=== PATIENT | female | born 1960 | race Two or more races ===

== ENCOUNTER 2024-05-10 17:12 | Emergency (ER) | payer MEDICAID, OTHER ==
[~2024-05-10] VITALS: Ht 157.5 cm; Wt 76.2 kg
--- NOTE | 2024-05-10 18:08 | ECG ---
[facility] Test Date: 2024-05-10 Test Time: 18:04:20 Pat Name: FELIPA PRUETT Department: ER Room: Gender: F Pharmacy Technician: GV : 1960 Requested By: ROSLYN SALAS Order Number: [id number] Reading MD: Anthony Sanabria Measurements Intervals [place] Rate: 94 P: 78 AR: 180 QRS: 71 QRSD: 89 T: 3 QT: 368 QTc: 461 Interpretive Statements Sinus rhythm Atrial premature complex Probable LVH with secondary repol abnrm Anterior Q waves, possibly due to LVH Electronically Signed On 05-11-2024 16:25:11 PST by Anthony Sanabria Please click the below link to view image of tracing.
--- NOTE | 2024-05-10 18:30 | ED.PDOC ---
HPI (NEURO) HPI Comments HPI: Poor Historian. 64-year-old female presents to emergency department for evaluation of left-sided periorbital headache for the last five days and also three day history of bilateral eye lateral vision disturbance for the last three days. Patient was found with blood pressure of L 251/140 and a heart rate of 97 in triage also right 255/136 Vitals: Temp: 97.6 F RR: 17 02 sat: 96% on room air HR: 97 BP: 255/136 PMH: Diabetes and hypertension not taking any medications PSH: denies Social history: denies tobacco use, denies ETOH use, denies drug use Meds: unknown allergies: nkda REVIEW OF SYSTEMS: CONSTITUTIONAL: Denies acute: fever, diaphoresis, chills, generalized weakness. HEAD: Denies acute: photophobia Eyes: Denies acute: Double vision, eye pain, eye discharge. EARS: Denies acute: tinnitus, hearing loss, ear discharge, ear pain, THROAT: Denies acute: sore throat, swelling, difficulty swallowing , pain with swallowing, change in voice. NECK: Denies acute: neck pain, neck swelling, stiff neck. HEART: Denies acute : chest pain, palpitations, LUNGS: Denies acute: SOB, wheezing, cough, hemoptysis ABDOMEN: Denies acute: abdominal pain, Nausea, Vomiting, diarrhea, melena , hematemesis, hematochezia SKIN: Denies acute: rash, redness, lesions, itchiness. EXTREMITIES: Denies acute: calf pain, numbness, tingling, weakness, denies pain in extremity. Denies acute: Low back pain. Neuro: Denies acute: focal neurological deficit, motor or sensory focal neurological deficit, tremors, seizure like activity, confusion, dizziness, change in mental status, loss of bowel or bladder function, cauda equina like symptoms. : Denies acute: dysuria, hematuria, flank pain, increase in urinary frequency. PSYCH: Denies acute: hallucination, suicidal ideation, homicidal ideation. FEMALE: Denies acute: abnormal vaginal bleeding, foul odor, unusual discharge. PHYSICAL EXAM: General: no acute distress, awake and alert. Head: normocephalic, atraumatic. Neck: supple, trachea is midline, no swelling. Throat: Normal phonation. Eyes:, no erythema, no purulent discharge, no proptosis, no icterus. Heart: regular rate, regular rhythm, no significant murmur appreciated. Lungs: no apparent respiratory distress, Able to speak in full sentences. No wheezing, no rhonchi, no crackles. No stridors Clear to auscultation bilaterally. Abdomen: non tender to palpation, non distended, soft, no guarding, no rebound, + bowel sounds. Neuro: Awake, Alert, oriented to name, self, situation, follows commands GCS=15. Speech is normal. Skin: no petechia, no purpura, no cyanosis, non-pale, not jaundice. Lower extremities: --no - Pitting edema no deformity, no focal swelling, no calf TTP. Makes eye contact. moves all four extremities. Face: no apparent facial droop. Ambulating in the ED independently. Ears: Normal appearing TM b/l, Stroke: finger to nose cerebellar testing is intact. No pronator drift. 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 No nystagmus. No nuchal rigidity, Kernig's sign, Brudzinski's sign, no meningeal signs. Chief Complaint: High Blood Pressure Time Seen by MD: 17:28 Reviewed Notes: Nurses Notes, Medications, Allergies Information Source: Patient Past Medical History PAST MEDICAL HISTORY: DM, HTN Surgical History: Denies all surgeries Social History Smoker: Non-Smoker Alcohol: Denies ETOH Use Drugs: Denies Drug Use Lives In: Home Was a procedure done? Was a procedure done?: No Differential Diagnosis (SZ) Seizure: N/A CVA: Mass Lesion, TIA Headache: Cluster, Migraine, Closed Head Injury, Carbon Monoxide Toxicity, CVA, Epidural Hemorrhage, Intracerebral Hemorrhage, Subarachnoid Hemorrhage, Subdural Hemorrhage, Mass Lesion, Meningitis, Post-Traumatic, Sinusitis, Trigeminal Neuralgia X-Ray, Labs, Meds, VS Vital Signs Date Time Temp Pulse Resp B/P (MAP) Pulse Ox O2 Delivery O2 Flow Rate FiO2 05/10/24 22:15 98.5 92 14 159/64 (95) 96 98.5 05/10/24 21:30 80 16 171/76 (107) 97 05/10/24 20:54 80 189/90 05/10/24 20:40 80 12 96 Room Air* 0 21 05/10/24 20:27 85 237/106 05/10/24 20:26 98.5 94 12 237/106 (149) 96 98.5 05/10/24 20:26 237/106 05/10/24 19:55 76 05/10/24 18:17 97.6 97 17 255/136 (175) 96 05/10/24 18:04 94 Lab Test 05/10/24 22:07 05/10/24 21:51 05/10/24 21:17 05/10/24 20:39 Range/Units Troponin I High Sensitivity 40 *H 37 *H </=34 ng/L Urine Color Light-yellow Yellow Urine Clarity Clear Clear Urine pH 8.0 5.0-9.0 Urine Specific [place] 1.042 H 1.001-1.035 Urine Protein Trace H Negative Urine Ketones Negative Negative Urine Blood Negative Negative /uL Urine Nitrite Negative Negative Urine Bilirubin Negative Negative Urine Urobilinogen Normal Negative mg/dL Urine Leukocyte Esterase Negative Negative /uL Urine RBC <1 0 - 4 /hpf Urine WBC <1 0 - 5 /hpf Urine Squamous Epithelial Cells Few <5 /hpf Urine Bacteria Few H None Seen /hpf Urine Glucose Normal Normal mg/dL POC Glucose 163 H 70-106 mg/dl Test 05/10/24 19:19 05/10/24 18:01 Range/Units White Blood Count 8.2 4.4-10.8 10^3/uL Red Blood Count 5.07 4.0-5.20 10^6/uL Hemoglobin 15.2 12.2-16.2 g/dL Hematocrit 44.5 36.0-46.0 % Mean Corpuscular Volume 87.8 80.0-100.0 fL Mean Corpuscular Hemoglobin 29.9 28.0-32.0 pg Mean Corpuscular Hemoglobin Concent 34.1 32.0-36.0 g/dL Red Cell Distribution Width 13.8 11.8-14.3 % Platelet Count 244 140-450 10^3/uL Mean Platelet Volume 9.3 6.9-10.8 fL Neutrophils (%) (Auto) 57.8 37.0-80.0 % Lymphocytes (%) (Auto) 29.5 10.0-50.0 % Monocytes (%) (Auto) 10.2 0.0-12.0 % Eosinophils (%) (Auto) 1.7 0.0-7.0 % Basophils (%) (Auto) 0.8 0.0-2.0 % Neutrophils # (Auto) 4.7 1.6-8.6 10 ^3/uL Lymphocytes # (Auto) 2.4 0.4-5.4 10 ^3/uL Monocytes # (Auto) 0.8 0-1.3 10 ^3/uL Eosinophils # (Auto) 0.1 0-0.8 10 ^3/uL Basophils # (Auto) 0.1 0-0.2 10 ^3/uL Nucleated Red Blood Cells 0.1 % Prothrombin Time 10.9 9.3-11.8 sec Prothrombin Time INR 1.03 0.9-1.15 Activated Partial Thromboplast Time 26.4 24.5-34.5 SEC Sodium Level 141 136-145 mmol/L Potassium Level 3.3 L 3.5-5.1 mmol/L Chloride Level 102 98-107 mmol/L Carbon Dioxide Level 31 20-31 mmol/L Anion Gap 8 5-15 Blood Urea Nitrogen 18 9-23 mg/dL Creatinine 0.90 0.550-1.02 mg/dL Glomerular Filtration Rate Calc 71 >90 mL/min BUN/Creatinine Ratio 20.0 10.0-20.0 Serum Glucose 121 H 74-106 mg/dL Calcium Level 9.6 8.7-10.4 mg/dL Magnesium Level 2.0 1.6-2.6 mg/dL Total Bilirubin 0.4 0.2-1.0 mg/dL Aspartate Amino Transferase (AST) 14 13-40 U/L Alanine Aminotransferase (ALT) 11 7-40 U/L Alkaline Phosphatase 104 46-116 U/L Troponin I High Sensitivity 41 *H </=34 ng/L B-Type Natriuretic Peptide 177.22 0-100 pg/mL Total Protein 7.3 5.7-8.2 g/dL Albumin 4.1 3.2-4.8 g/dL POC Glucose 134 H 70-106 mg/dl Current Medications Medications (Trade) Dose Ordered Sig/Lakhwinder Route Start Time Stop Time Status Last Admin Nitroglycerin (Ntrostat Sublingual) 0.4 mg ONCE ONCE SL 05/10/24 18:30 05/10/24 18:31 DC 05/10/24 20:26 Labetalol HCl (Labetalol HCl) 5 mg ONCE ONCE IV 05/10/24 18:30 05/10/24 18:31 DC 05/10/24 20:27 Levetiracetam 100 ml @ 400 mls/hr ONCE ONCE IV 05/10/24 19:45 05/10/24 20:24 DC 05/10/24 20:42 Dexamethasone Sodium Phosphate (Decadron Injection) 10 mg ONCE ONCE IV 05/10/24 19:45 05/10/24 19:46 DC 05/10/24 20:28 Nicardipine HCl 250 ml @ 50 mls/hr Q5H IV 05/10/24 19:45 05/10/24 23:18 DC 05/10/24 20:54 [place] [address] Ph: [phone] DIAGNOSTIC IMAGING Diagnostic Imaging Report : [id number] Signed PATIENT: FELIPA PRUETT ACCT: [id number] UNIT: [id number] : 1960 LOC: ER ROOM / BED: / AGE / SEX: 64 / F ADM STATUS: REG ER SERVICE 17 ORDERING PHYSICIAN: ROSLYN SALAS DO PROCEDURE(s): [place] - ANGIO HEAD/Neck REASON: HTN, GUTHRIE, VISION CHANGES ORDER NUMBER(s): [id number], ACCESSION NUMBER(s): [id number] INDICATION: HTN, GUTHRIE, VISION CHANGES COMPARISON: Same-day CT brain TECHNIQUE:CTA head and neck with intravenous contrast. 3D/MIP image postprocessing was performed and images were used for interpretation and reporting. Radiation Dose Information: CT Dose: CTDI volume is 22.27 mGy. Dose-length product is 774.66 mGy*cm FINDINGS: CTA neck: Normal 3-vessel origin left-sided aortic arch. The bilateral subclavian arteries are unremarkable. Bilateral common carotid arteries and bilateral cervical ICAs are unremarkable. Bilateral vertebral arteries are unremarkable with left dominant vertebral artery. CTA head: Bilateral ACAS, anterior communicating artery and bilateral MCAs are unremarkable. Bilateral intracranial ICAs are unremarkable. Bilateral dev technical mgr, bilateral superior cerebellar arteries, basilar artery and bilateral intracranial vertebral arteries unremarkable. The dural venous sinuses opacify normally. There is left occipital acute intraparenchymal hemorrhage measuring up to 2.7 x 1.3 by 1.2 cm which is better evaluated on same-day noncontrast CT brain. Right thyroid lobe nodules, largest measuring up to 0.7 cm. The lung apices are clear. IMPRESSION: No hemodynamically significant stenosis, aneurysm or vascular malformation involving the major intracranial and neck vessels. Left occipital lobe intraparenchymal hemorrhage. Please see separate noncontrast CT brain for complete details. ATED BY: BROOKE COLLINS DO DICTATED DATE/TIME: 05/10/241926 SIGNED BY: BROOKE COLLINS DO SIGNED DATE/TIME: 05/10/241926 CC: [place] [address] Ph: [phone] DIAGNOSTIC IMAGING Diagnostic Imaging Report : [id number] Signed PATIENT: FELIPA PRUETT ACCT: [id number] UNIT: [id number] : 1960 LOC: ER ROOM / BED: / AGE / SEX: 64 / F ADM STATUS: REG ER SERVICE 17 ORDERING PHYSICIAN: ROSLYN SALAS DO PROCEDURE(s): CTH - STROKE CTH REASON: HTN, GUTHRIE, VISION CHANGES ORDER NUMBER(s): [id number], ACCESSION NUMBER(s): [id number] Exam: CT STROKE CTH History: HTN, GUTHRIE, VISION CHANGES Technique: [address] images through the posterior fossa and the supratentorial compartment were acquired without contrast and imaged using soft tissue and bone algorithms. RADIATION DOSE: DLP 991.21 mGy.cm; CTDI vol 55.99 mGy. Comparison: None Findings: 2.7 x 1.8 cm left occipital lobe parenchymal hemorrhage. No mass effect or midl ine shift. There is no evidence of acute large vessel infarct. There is no significant cerebral atrophy. No significant calcification of the carotid siphons. The calvarium, orbits, paranasal sinuses, sella, middle ears, and mastoids are unremarkable. The superficial soft tissues are within normal limits. Impression: 1. 2.7 x 1.8 cm left occipital lobe parenchymal hemorrhage. 2. No mass effect or midline shift. Critical Result: Intracranial hemorrhage Findings discussed with ROSLYN SALAS at 05/10/2024 07:20 PM, and acknowledged receipt and understanding of the findings. ATED BY: HANNA HONG DO DICTATED DATE/TIME: 05/10/241920 SIGNED BY: HANNA HONG DO SIGNED DATE/TIME: 05/10/241920 CC: [place] [address] Ph: [phone] DIAGNOSTIC IMAGING Diagnostic Imaging Report : [id number] Signed PATIENT: FELIPA PRUETT ACCT: [id number] UNIT: [id number] : 1960 LOC: ER ROOM / BED: / AGE / SEX: 64 / F ADM STATUS: REG ER SERVICE 17 ORDERING PHYSICIAN: ROSLYN SALAS DO PROCEDURE(s): CXRP - CHEST PORTABLE REASON: HTN, GUTHRIE, VISION CHANGES ORDER NUMBER(s): [id number], ACCESSION NUMBER(s): [id number] CHEST RADIOGRAPH Indication: HTN, GUTHRIE, VISION CHANGES Technique: Single frontal view of the chest was obtained Comparison: None FINDINGS: Lines and Tubes: None Lungs: No focal consolidation. Pleura: No effusion. No pneumothorax. Cardiomediastinal contours: Unremarkable Bones: No acute osseous abnormality. IMPRESSION: No acute cardiopulmonary disease. ATED BY: MEHUL SPEARS MD DICTATED DATE/TIME: 05/10/241919 SIGNED BY: MEHUL SPEARS MD SIGNED DATE/TIME: 05/10/241919 CC: [place] [address] Ph: [phone] DIAGNOSTIC IMAGING Diagnostic Imaging Report : [id number] Signed PATIENT: FELIPA PRUETT ACCT: [id number] UNIT: [id number] : 1960 LOC: ER ROOM / BED: / AGE / SEX: 64 / F ADM STATUS: REG ER SERVICE 17 ORDERING PHYSICIAN: ROSLYN SALAS DO PROCEDURE(s): [place] - ANGIO HEAD/Neck REASON: HTN, GUTHRIE, VISION CHANGES ORDER NUMBER(s): [id number], ACCESSION NUMBER(s): [id number] INDICATION: HTN, GUTHRIE, VISION CHANGES COMPARISON: Same-day CT brain TECHNIQUE:CTA head and neck with intravenous contrast. 3D/MIP image postprocessing was performed and images were used for interpretation and reporting. Radiation Dose Information: CT Dose: CTDI volume is 22.27 mGy. Dose-length product is 774.66 mGy*cm FINDINGS: CTA neck: Normal 3-vessel origin left-sided aortic arch. The bilateral subclavian arteries are unremarkable. Bilateral common carotid arteries and bilateral cervical ICAs are unremarkable. Bilateral vertebral arteries are unremarkable with left dominant vertebral artery. CTA head: Bilateral ACAS, anterior communicating artery and bilateral MCAs are unremarkable. Bilateral intracranial ICAs are unremarkable. Bilateral dev technical mgr, bilateral superior cerebellar arteries, basilar artery and bilateral intracranial vertebral arteries unremarkable. The dural venous sinuses opacify normally. There is left occipital acute intraparenchymal hemorrhage measuring up to 2.7 x 1.3 by 1.2 cm which is better evaluated on same-day noncontrast CT brain. Right thyroid lobe nodules, largest measuring up to 0.7 cm. The lung apices are clear. IMPRESSION: No hemodynamically significant stenosis, aneurysm or vascular malformation involving the major intracranial and neck vessels. Left occipital lobe intraparenchymal hemorrhage. Please see separate noncontrast CT brain for complete details. ATED BY: BROOKE COLLINS DO DICTATED DATE/TIME: 05/10/241926 SIGNED BY: BROOKE COLLINS DO SIGNED DATE/TIME: 05/10/241926 CC: [place] [address] Ph: [phone] DIAGNOSTIC IMAGING Diagnostic Imaging Report : [id number] Signed PATIENT: FELIPA PRUETT ACCT: [id number] UNIT: [id number] : 1960 LOC: ER ROOM / BED: / AGE / SEX: 64 / F ADM STATUS: REG ER SERVICE 17 ORDERING PHYSICIAN: ROSLYN SALAS DO PROCEDURE(s): CTH - STROKE CTH REASON: HTN, GUTHRIE, VISION CHANGES ORDER NUMBER(s): [id number], ACCESSION NUMBER(s): [id number] Exam: CT STROKE CTH History: HTN, GUTHRIE, VISION CHANGES Technique: [address] images through the posterior fossa and the supratentorial compartment were acquired without contrast and imaged using soft tissue and bone algorithms. RADIATION DOSE: DLP 991.21 mGy.cm; CTDI vol 55.99 mGy. Comparison: None Findings: 2.7 x 1.8 cm left occipital lobe parenchymal hemorrhage. No mass effect or midline shift. There is no evidence of acute large vessel infarct. There is no significant cerebral atrophy. No significant calcification of the carotid siphons. The calvarium, orbits, paranasal sinuses, sella, middle ears, and mastoids are unremarkable. The superficial soft tissues are within normal limits. Impression: 1. 2.7 x 1.8 cm left occipital lobe parenchymal hemorrhage. 2. No mass effect or midline shift. Critical Result: Intracranial hemorrhage Findings discussed with ROSLYN SALAS at 05/10/2024 07:20 PM, and acknowledged receipt and understanding of the findings. ATED BY: HANNA HONG DO DICTATED DATE/TIME: 05/10/241920 SIGNED BY: HANNA HONG DO SIGNED DATE/TIME: 05/10/241920 CC: Time of 1ST Reevaluation: 19:21 (Just received a phone call from Dr. Hong the radiologist stating she has small left occipital lobe parenchymal hemorrhage no mass effect and no midline shift. I notified the charge nurse immediately to [facility] us a bed) Reevaluation 1ST: Unchanged Time of 2ND Reevaluation: 19:39 (The case was discussed with the [facility] team team (HPI, physical exam, labs and diagnostic tests that were available at the time of disposition, ED course, treatment plan) on the phone. They agreed to accept the patient to their facility for higher level of care and for neurology and neurosurgical evaluation and treatment. Dr. Sacha BATRES ) Reevaluation 2ND: Unchanged Time of 3RD Reevaluation: 00:00 Reevaluation 3RD: Improved Patient Education/Counseling: Diagnosis, Treatment Family Education/Counseling: Diagnosis, Treatment Comments Patient presented with the above HPI.---hypertensive/neurological complaints---workup was initiated. patient was found with the above mentioned diagnosis. Patient was given: Labetalol IV, nitroglycerin sublingually, nicardipine drip. Patient was given Keppra and Decadron given the findings of intracranial hemorrhage Patient ED course and VS have been stabilized. Patient has been reassessed in the ED and remained in a stable condition. Pertinent incidental findings were discussed with the patient and/or family. Patient/family voices understanding and is agreeable with plan. Patient has been observed in the ED adequate length of time to insure improvement/stability. patient was transferred to higher level of care for further evaluation and treatment of their presentation. Patient was flown by helicopter to [facility]. All the reports of any imaging studies that were ordered by myself were reviewed by myself. Patient had slight elevation of her troponin likely from hypertensive emergency. Patient is not a candidate for anticoagulation given her intracranial hemorrhage. Departure 1 Departure Time of Disposition: 19:22 Impression: Primary Impression: Hypertensive emergency Additional Impressions: Intracranial hemorrhage Elevated troponin Disposition: 02 SHORT TERM HOSPITAL Admit to: ICU Condition: Critical Discharged With: Self Critical Care Note Critical Care Time?: Yes (1 hr-critical care time only) I personally scribed for ROSLYN SALAS DO ([email or web address]) on 05/10/24 at 20:01. Electronically submitted by Ysabel MESSER). ROSLYN SALAS DO May 10, 2024 18:30
--- NOTE | 2024-05-10 19:23 | DVH ---
Exam: CT STROKE CTH History: HTN, GUTHRIE, VISION CHANGES Technique: [address] images through the posterior fossa and the supratentorial compart ment were acquired without contrast and imaged using soft tissue and bone algorithms. RADIATION DOSE: DLP 991.21 mGy.cm; CTDI vol 55.99 mGy. Comparison: None Findings: 2.7 x 1.8 cm left occipital lobe parenchymal hemorrhage. No mass effect or midline shift. There is no evidence of acute large vessel infarct. There is no significant cerebral atrophy. No significant calcification of the carotid siphons. The calvarium, orbits, paranasal sinuses, sella, middle ears, and mastoids are unremarkable. The superficial soft tissues are within normal limits. Impression: 1. 2.7 x 1.8 cm left occipital lobe parenchymal hemorrhage. 2. No mass effect or midline shift. Critical Result: Intracranial hemorrhage Findings discussed with ROSLYN SALAS at 05/10/2024 07:20 PM, and acknowledged receipt and understandin g of the findings.
--- NOTE | 2024-05-10 19:23 | DVH ---
CHEST RADIOGRAPH Indication: HTN, GUTHRIE, VISION CHANGES Technique: Single frontal view of the chest was obtained Comparison: None FINDINGS: Lines and Tubes: None Lungs: No focal consolidation. Pleura: No effusion. No pneumothorax. Cardiomediastinal contours: Unremarkable Bones: No acute osseous abnormality. IMPRESSION: No acute cardiopulmonary disease.
--- NOTE | 2024-05-10 19:29 | DVH ---
INDICATION: HTN, GUTHRIE, VISION CHANGES COMPARISON: Same-day CT brain TECHNIQUE:CTA head and neck with intravenous contrast. 3D/MIP image postprocessing was performed and images were used for interpretation and reporting. Radiation Dose Information: CT Dose: CTDI volume is 22.27 mGy. Dose-length product is 774.66 mGy*cm FINDINGS: CTA neck: Normal 3-vessel origin left-sided aortic arch. The bilateral subclavian arteries are unremarkable. Bilateral common carotid arteries and bilateral cervical ICAs are unremarkable. Bilateral vertebral arteries are unremarkable with left dominant vertebral artery. CTA head: Bilateral ACAS, anterior communicating artery and bilateral MCAs are unremarkable. Bilateral intracranial ICAs are unremarkable. Bilateral manager human resources, bilateral superior cerebellar arteries, basilar artery and bilateral intracranial pallavi tebral arteries unremarkable. The dural venous sinuses opacify normally. There is left occipital acute intraparenchymal hemorrhage measuring up to 2.7 x 1.3 by 1.2 cm which i s better evaluated on same-day noncontrast CT brain. Right thyroid lobe nodules, largest measuring up to 0.7 cm. The lung apices are clear. IMPRESSION: No hemodynamically significant stenosis, aneurysm or vascular malformation involving the major intrac ranial and neck vessels. Left occipital lobe intraparenchymal hemorrhage. Please see separate noncontrast CT brain for comple te details.
[2024-05-10 19:32] LABS: Basophils # (auto) 0.1 10 ^3/uL (0-0.2); Basophils % (auto) 0.8 % (0.0-2.0); Eosinophils # (auto) 0.1 10 ^3/uL (0-0.8); Eosinophils % (auto) 1.7 % (0.0-7.0); Hematocrit 44.5 % (36.0-46.0); Hemoglobin 15.2 g/dL (12.2-16.2); Lymphocytes # (auto) 2.4 10 ^3/uL (0.4-5.4); Lymphocytes % (auto) 29.5 % (10.0-50.0); Mean Corpuscular Hemoglobin 29.9 pg (28.0-32.0); Mean Corpuscular Hgb Conc. 34.1 g/dL (32.0-36.0); Mean Corpuscular Volume 87.8 fL (80.0-100.0); Monocytes # (auto) 0.8 10 ^3/uL (0-1.3); Monocytes % (auto) 10.2 % (0.0-12.0); Neutrophils # (auto) 4.7 10 ^3/uL (1.6-8.6); Neutrophils % (auto) 57.8 % (37.0-80.0); Nucleated Red Blood Cells % 0.1 %; Platelet Count (auto) 244 10^3/uL (140-450); Red Blood Cells 5.07 10^6/uL (4.0-5.20); Red Cell Distribution Width 13.8 % (11.8-14.3); White Blood Cell 8.2 10^3/uL (4.4-10.8)
[2024-05-10 19:49] LABS: Alanine Aminotransferase 11 U/L (7-40); Albumin 4.1 g/dL (3.2-4.8); Alkaline Phosphatase 104 U/L (46-116); Anion Gap 8 (5-15); Aspartate Aminotransferase 14 U/L (13-40); Blood Urea Nitrogen 18 mg/dL (9-23); Calcium 9.6 mg/dL (8.7-10.4); Chloride 102 mmol/L (98-107); Sodium 141 mmol/L (136-145)
[2024-05-10 19:50] LABS: Bilirubin, Total 0.4 mg/dL (0.2-1.0); Total Protein 7.3 g/dL (5.7-8.2)
[2024-05-10 19:52] LABS: Carbon Dioxide 31 mmol/L (20-31); Glucose 121 mg/dL (74-106); Potassium 3.3 mmol/L (3.5-5.1)
[2024-05-10 20:01] LABS: INR 1.03 (0.9-1.15); Partial Thromboplastin Time 26.4 SEC (24.5-34.5); Prothrombin Time 10.9 sec (9.3-11.8)
[2024-05-10] MEDS: NITROGLYCERIN 0.4 MG SL TAB SL ONE (20:26)
[2024-05-10] MEDS: LABETALOL HCL 20 MG/4 ML VL IV ONE (20:27)
[2024-05-10] MEDS: DexAMETHasone SOD PHOS 10MG/1ML VIAL INJ IV ONE (20:28)
[2024-05-10 20:40] VITALS: PULSE 80; RESP 12; O2SAT 96
[2024-05-10] MEDS: levETIRAcetam 500 mg/100ml 100 ML IV ONE (20:42)
[2024-05-10 22:15] VITALS: BP 159/64; PULSE 92; RESP 14; TEMP 98.5; O2SAT 96
[2024-05-10 22:32] LABS: Urine Bacteria FEW /hpf (None Seen); Urine Blood Negative /uL (Negative); Urine Clarity Clear (Clear); Urine Color Light-Yellow (Yellow); Urine Protein, UAD TRACE (Negative); Urine Specific Gravity 1.042 (1.001-1.035); Urine Urobilinogen Normal (Negative); Urine WBC <1 /hpf (0 - 5)
== END 2024-05-10 22:21 | disposition short-term general hospital (02) ==
LOC: ER 17:12
DX: I16.1 Hypertensive emergency (principal); I62.9 Nontraumatic intracranial hemorrhage, unspecified; R79.89 Other specified abnormal findings of blood chemistry; E11.9 Type 2 diabetes mellitus without complications; Z79.899 Other long term (current) drug therapy
CPT/HCPCS: 36415; 70450; 70496; 71045; 80053; 81001; 82962; 83735; 83880; 84484; 85025; 85610; 85730; 93005; 96365; 96366; 96368; 96375; 99291; J1100; J1953

== ENCOUNTER 2024-08-18 13:05 | Emergency (ER) | payer MEDICAID ==
[~2024-08-18] VITALS: Ht 152.4 cm; Wt 67.5 kg
[2024-08-18] MEDS: amLODIPine BESYLATE 5 MG TAB PO ONE (13:57)
--- NOTE | 2024-08-18 14:13 | ED.PDOC ---
HPI Comments 64 y/o F, with PMHX of HTN, CVA, DM presents to the ED for CC OF high blood pressure and headache. Patient states, that she has been experiencing high blood pressure readings with associated symptoms of headache x1day. Patient relays, that she recently ran out of her blood pressure medication x3days ago. Patient's blood pressure read at 200/100 at home; patient's blood pressure in triage read at 206/79. Patient currently takes Amlodipine 10 mg, Metformin 10mg, and Rosuvas tatin 10mg. No other symptoms or modifying factors at this time. 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 Family History Family History: Unknown Social History Smoker: Non-Smoker Alcohol: Denies ETOH Use Drugs: Denies Drug Use Lives In: Home Constitutional: denies: chills, diaphoresis, fatigue, fever, malaise, sweats, weakness, others EENTM: denies: blurred vision, double vision, ear bleeding, ear discharge, ear drainage, ear pain, ear ringing, eye pain, eye redness, hearing loss, mouth pain, mouth swelling, nasal discharge, nose bleeding, nose congestion, nose pain, photophobia, tearing, throat pain, throat swelling, voice changes, others Respiratory: denies: cough, hemoptysis, orthopnea, SOB at rest, shortness of breath, SOB with excertion, stridor, wheezing, others Cardiovascular: denies: chest pain, dizzy spells, diaphoresis, Dyspnea on exertion, edema, irregular heart beat, left arm pain, lightheadedness, palpitations, PND, syncope, others Gastrointestinal: denies: abdomen distended, abdominal pain, blood streaked bowels, constipated, diarrhea, dysphagia, difficulty swallowing, hematemesis, melena, nausea, poor appetite, poor fluid intake, rectal bleeding, rectal pain, vomiting, others Genitourinary: denies: abnormal vagina bleeding, burning, dyspareunia, dysuria, flank pain, frequency, hematuria, incontinence, pain, , vagina discharge, urgency, others Neurological: reports: headache; denies: dizziness, fainting, left sided numbness, left sided weakness, numbness, paresthesia, pre-existing deficit, right sided numbness, right sided weakness, seizure, speech problems, tingling, tremors, weakness, others Musculoskeletal: denies: back pain, gout, joint pain, joint swelling, muscle pain, muscle stiffness, neck pain, others Integumetry: denies: bruises, change in color, change in hair/nails, dryness, laceration, lesions, lumps, rash, wounds, others Allergic/Immunocompromised: denies: Difficulty Healing, Frequent Infections, Hives, Itching, others Hematologic/Lymphatic: denies: anemia, blood clots, easy bleeding, easy bruising, swollen glands, others Endocrine: denies: excessive hunger, excessive sweating, excessive thirst, excessive urination, flushing, intolerance to cold, intolerance to heat, unexplained weight gain, unexplained weight loss, others Psychiatric: denies: anxiety, bipolar disorder, depression, hopeless, panic disorder, schizophrenia, sleepless, suicidal, others All Other Systems: Reviewed and Negative Physical Exam General Appearance: No Apparent Distress, Normal HEENT: Normal ENT Inspection, Pharynx Normal Neck: Full Range of Motion, Non-Tender, Normal, Normal Inspection, Supple Respiratory: Chest Non-Tender, Lungs Clear, No Accessory Muscle Use, No Respiratory Distress, Normal Breath Sounds Cardiovascular: No Edema, No Murmur, No Gallop, Normal Peripheral Pulses, Regular Rate/Rhythm Breast Exam: Deferred Gastrointestinal: No Organomegaly, Non Tender, No Pulsatile Mass, Normal Bowel Sounds, Soft Genitalia: Deferred Pelvic: Deferred Rectal: Deferred Extremities: Other (Moves all 4 extremities with 5/5 strength. Grossly normal. Septum standing position stands from sitting position without difficulty.) Musculoskeletal : Apperance: Normal Neurologic: Alert, immigration specialist II-XII nml as Tested, No Motor Deficits, Normal Affect, Normal Mood Cerebellar Function: Normal Reflexes: NOT DONE Skin: Dry, Normal Color, Warm Lymphatic: No Adenopathy Was a procedure done? Was a procedure done?: No CP Differential Dx Differential Diagnosis: A-fib, A-Flutter, Anxiety / Panic Attack Differential Diagnosis: HTN Essential, HTN Accelerated X-Ray, Labs, Meds, VS Vital Signs Date Time Temp Pulse Resp B/P (MAP) Pulse Ox O2 Delivery O2 Flow Rate FiO2 08/18/24 15:54 178/75 08/18/24 15:39 98.2 82 20 178/75 (109) 97 98.2 08/18/24 15:39 72 20 97 Room Air* 0 21 08/18/24 13:59 98.1 82 16 153/82 (105) 96 98.1 08/18/24 13:59 82 16 96 Room Air 08/18/24 13:57 152/82 08/18/24 13:30 98.8 90 18 206/79 (121) 97 188/90 (122) Current Medications Medications (Trade) Dose Ordered Sig/Lakhwinder Route Start Time Stop Time Status Last Admin Amlodipine Besylate (Norvasc Tablet) 10 mg ONCE ONCE PO 08/18/24 13:45 08/18/24 13:46 DC 08/18/24 13:57 Clonidine HCl (Catapres Tablet) 0.1 mg ONCE ONCE PO 08/18/24 15:45 08/18/24 15:46 DC 08/18/24 15:54 Acetaminophen (Tylenol Tablet Or Capsule) 1,000 mg ONCE ONCE PO 08/18/24 15:45 08/18/24 15:46 DC 08/18/24 15:55 X-Ray, Labs, Meds, VS Comment This 64-year-old female presents secondary to very mild occipital headache after being off her blood pressure medication in 3 days. She was given her daily dose amlodipine with resolution of her hypertension. Headache resolved but returned. She was then given clonidine with resolution of her headache.. As such, she was discharged home with a prescription for her amlodipine. Secondary to previous history of hemorrhagic stroke, she had a CTA of the head which was negative. She was follow up with the PCP next 1 - 2 days return to ER for new/worse/worsening symptoms. Time of 1ST Reevaluation: 14:20 Reevaluation 1ST: Unchanged Patient Education/Counseling: Diagnosis, Treatment Family Education/Counseling: No Family Present Departure 1 Departure Time of Disposition: 15:57 Impression: Primary Impression: Hypertension Additional Impressions: Noncompliance with medication regimen Headache Disposition: HOME / SELF CARE / HOMELESS Condition: Good Discharged With: Self, Relative Critical Care Note Critical Care Time?: No Stability Stability form required: No Heart Score Heart Score: Heart Score Response (Comments) Value History N/A 0 EKG N/A 0 Age N/A 0 Risk Factors N/A 0 Troponin N/A 0 Total 0 I personally scribed for GIO VARGAS MD ([email or web address]) on 08/18/24 at 14:13. Electronically submitted by Shanice Decker ([email or web address]). I personally scribed for GIO VARGAS MD ([email or web address]) on 08/18/24 at 14:22. Electronically submitted by Shanice Decker ([email or web address]). GIO VARGAS MD Aug 18, 2024 14:13
[2024-08-18 15:39] VITALS: PULSE 72; RESP 20; O2SAT 97
[2024-08-18] MEDS: cloNIDine HCL 0.1 MG TAB PO ONE (15:54)
[2024-08-18] MEDS: ACETAMINOPHEN 500 MG TAB or CAP PO ONE (15:55)
--- NOTE | 2024-08-18 16:24 | DVH ---
EXAM: CT HEAD WITHOUT CONTRAST HISTORY: headache COMPARISON: CT STROKE CTH on DOS: 05/10/24 TECHNIQUE: Noncontrast axial CT images of the head were performed. Sagittal and coronal reformatted i mages were obtained. This CT exam was performed using 1 or more of the following dose reduction techn iques: Automated exposure control, adjustment of the mA and/or kv according to patient size, or the u se of iterative reconstruction techniques. Radiation Dose: CTDI volume is 53.99 mGy. Dose-length product is 863.9 mGy*cm FINDINGS: There is [id number] patchy decreased attenuation in the periventricular and bicerebra l white matter. No acute intracranial hemorrhage, mass, midline shift, hydrocephalus, or evidence of acute large vessel infarct. Left occipital intracranial hemorrhage seen on the previous CT scan has r esolved in the interim, with mild residual encephalomalacia present. The partially-visualized paranas al sinuses are clear. The bilateral mastoid air cells and middle ear spaces are clear. No cranial fra cture or scalp edema. IMPRESSION: 1. Chronic ischemic changes without evidence of acute intracranial process. 2. Resolved left occipital intraparenchymal hemorrhage.
[2024-08-18] MEDS ORDERED: AMLO1TAB22 PO (17:13)
[2024-08-18 18:08] VITALS: BP 146/78; PULSE 67; RESP 17; TEMP 98.5; O2SAT 94
== END 2024-08-18 18:10 | disposition home or self-care (01) ==
LOC: ER 13:05
DX: I10 Essential (primary) hypertension (principal); R51.9 Headache, unspecified; E11.9 Type 2 diabetes mellitus without complications; Z86.73 Personal history of transient ischemic attack (TIA), and cerebral infarction without residual deficits; Z91.148 Patient's other noncompliance with medication regimen for other reason
CPT/HCPCS: 70450